=== PATIENT | female | born 1960 | race Caucasian/White ===

== ENCOUNTER → 2018-08-10 | Outpatient (CLI) | payer BC ==
[~2018-08-10] MED LIST: ATOR20TA58 PO; CARV3.1210 PO; FLUO40CA9 PO; FURO20TA3 PO; LISI-338 PO
--- NOTE | 2018-08-10 17:10 | KCIC ---
Bilateral digital screening mammograms: Reason for examination: Routine screening. Comparison is made to previous studies dated 11/24/2015 and 05/13/2011. Interpretation was made with the benefit of CAD. The skin and nipples show no abnormalities. No abnormal axillary lymph nodes are seen. The breast parenchyma shows scattered fibroglandular density. (Breast density: Category B.) There are no dominant masses, suspicious calcifications or architectural distortions. Impression: No evidence of malignancy. Recommend routine screening. BI-RADS Category 1: Negative. "Our facility is accredited by the [employer] Mammography Program." This patient's information has been entered into a reminder system for the patient to be notified with the results of her examination and a target date for the next mammogram. Electronically signed by: Kitty Arambula MD (08/10/2018 5:06 PM) [facility]
== END | disposition home or self-care (01) ==
LOC: KCIC MAMMO 14:01
PROVIDERS: ATTEND Family Medicine
DX: Z12.31 Encounter for screening mammogram for malignant neoplasm of breast (principal)
CPT/HCPCS: 77067

== ENCOUNTER → 2019-04-12 | Outpatient (CLI) | payer BC ==
[~2019-04-12] MED LIST changes: +IOHEXOL 300 MG/ML 50 ML VIAL. IT ONE; +LIDOCAINE 1% Multi-Dose 20 ML VIAL. ID ONE
--- NOTE | 2019-04-12 16:11 | KCIC ---
CT CERVICAL SPINE W/CONTRAST (with intrathecal contrast post myelogram) Indication: Paresthesias. Cervical fusion. Comparison: 08/09/2015. Technique: CT images of the cervical spine were obtained without intravenous contrast immediately after the intrathecal administration of myelographic contrast material during the preceding cervical spine myelogram. Please see the cervical myelogram report for detailed description of the intrathecal contrast administration. Sagittal and coronal reconstructions were also performed. These were viewed on soft tissue and bony settings. One or more of the following dose reduction techniques were utilized: Automated exposure control (AEC), Adjustment of mA and/or kV according to patient size, Use of iterative reconstruction technique such as ASiR, CT scan done according to ALARA and image gently/image wisely Findings: Postsurgical changes of interval ACDF at C4-C6 with interbody spacers at C4-5 and C5-6. Surgical hardware is intact. Straightening of the normal cervical lordosis. Trace anterolisthesis at C2-3 and C3-4. No acute fracture. The vertebral body heights are maintained without compression deformity. Mild multilevel degenerative disc desiccation. The visualized soft tissues of the neck are unremarkable. Degenerative changes at each level are as follows: C2-3: Mild disc bulge. No significant spinal stenosis or neural foraminal narrowing. C3-4: Central disc protrusion, which abuts and deforms the ventral cord. Mild to moderate spinal canal narrowing. Uncovertebral hypertrophy. Mild foraminal narrowing. C4-5: Uncovertebral hypertrophy. Mild foraminal narrowing. No spinal stenosis. C5-6: Uncovertebral hypertrophy. Moderate right and mild left neuroforaminal narrowing. No spinal stenosis. C6-7: Minimal disc bulge. Mild uncovertebral hypertrophy and facet arthropathy. Moderate neuroforaminal narrowing. No spinal stenosis. C7-T1: No significant spinal stenosis or neural foraminal narrowing. IMPRESSION: Cervical spondylosis, detailed level by level above. No high-grade spinal canal narrowing. ACDF at C4-C6. Intact surgical hardware. Electronically signed by: Morro Matute MD (04/12/2019 4:08 PM) [facility]
--- NOTE | 2019-04-12 16:13 | KCIC ---
MYELOGRAPHY CERVICAL DATE: 04/12/2019 9:30 AM INDICATION: Paresthesias. Cervical spondylosis. Cervical fusion. COMPARISON: 08/09/2015. CONSENT: The risks and benefits of myelography including, but not limited to, infection, bleeding, headache, and irritation or damage to nerves causing pain were discussed with the patient who gave informed verbal and written consent. Alternatives were discussed. All the questions were answered. The patient acknowledged understanding and wished to proceed with the myelogram. TECHNIQUE: The L2-3 level was localized with fluoroscopy. The skin overlying this level was then sterilely prepped, draped, and infiltrated with 1% lidocaine for local anesthesia. Under fluoroscopic guidance, a 22 gauge 3.5 inch spinal needle was inserted into the thecal sac at this level and 10 ml of Isoview 300-M was instilled. Post myelographic images demonstrate ACDF at C4-C6. Improved disc bulges at these levels. Small disc bulges at C3-4. After the fluoroscopic images were obtained, the patient was transferred to CT. The patient tolerated the procedure well. Fluoroscopic Time: 2 minutes 34 seconds Number of Images: 7 images IMPRESSION: Successful cervical myelogram. CT to follow. Electronically signed by: Morro Matute MD (04/12/2019 4:10 PM) [facility]
== END | disposition home or self-care (01) ==
LOC: KCIC 09:19
PROVIDERS: ATTEND Nurse Practitioner Gerontology
DX: M47.812 Spondylosis without myelopathy or radiculopathy, cervical region (principal); M50.21 Other cervical disc displacement, high cervical region; M12.88 Other specific arthropathies, not elsewhere classified, other specified site; M89.38 Hypertrophy of bone, other site; Z98.1 Arthrodesis status
CPT/HCPCS: 72126; 72240; Q9967

== ENCOUNTER → 2019-07-08 | Outpatient (CLI) | payer BC ==
[~2019-07-08] MED LIST changes: +ACET325T9 PO; +CYCL10TA2 PO; +IBUP-1027 PO; +IOHEXOL 180 MG/ML 10 ML VIAL. ONE; -IOHEXOL 300 MG/ML 50 ML VIAL. IT ONE; -LIDOCAINE 1% Multi-Dose 20 ML VIAL. ID ONE; +OXYC-325 PO; +methylPREDNISolone ACETATE 40 MG/ML VIAL. ONE; +methylPREDNISolone ACETATE 80 MG/ML VIAL. ONE
--- NOTE | 2019-07-08 15:54 | PAIN ---
DATE OF SERVICE: 07/08/2019 INITIAL CONSULTATION FOR PAIN CLINIC CHIEF COMPLAINT: Neck and left upper extremity pain. HISTORY OF PRESENT ILLNESS: This is a 58-year-old female, who presents with history of pain in the base of the neck, left shoulder, left upper extremity for about a year now. The patient reports over 3 years it has been getting worse, but had surgery in 2017, which helped significantly. The pain returned over about the past year, not a result of any specific injury or action that she is aware of at the base of the neck radiating to the left shoulder and arm, front of the pectoral region as well as the scapula on the left side into the bicep and into the forearms with numbness and tingling in both the hands. The patient reports it is constant, sharp, shooting with numbness and tingling in the hands and a cold sensation in the left shoulder and arm as well. The patient reports no recent injury or accident. The patient reports it awakens her from sleep at least once or twice a night, does not affect her bowel or bladder control or ability to walk, but it is worse with standing, walking, changing positions, any weightbearing with the left arm, fine motor movements are difficult with the left hand as well and reaching over her head with her right arm exacerbates the pain also, so does driving a car, holding onto a steering wheel with the left arm. The patient reports she had some trigger point injections with Dr. Carmichael in 2019, which did help temporarily. It is in the base of the neck and shoulder, also has tried Flexeril. She is taking Percocet, both of which do decrease the pain by about 30%, but did not last very long. The patient rates her disability rating from 0-10, 10 being the worst, is a 5 with family home responsibilities, 4 with recreation and social activity; 9 with occupation and sexual behavior, 2 with self-care and 0 with life support activities. The patient did have a myelogram and CT of the cervical spine showing C3-C4 central disk protrusion abutting and deforming the ventral cord with [id number] spinal canal narrowing. Previous surgery with the anterior fusion, C4 through C6. PAST MEDICAL HISTORY: Significant for arthritis, cigarette smoking. PREVIOUS SURGERY: Include a cervical anterior fusion, pacemaker placement, two knee surgeries on the left, two ankle surgeries and the cholecystectomy. CURRENT MEDICATIONS: Include Percocet, cyclobenzaprine, Tylenol, ibuprofen, Lasix, Prozac, atorvastatin, carvedilol, and lisinopril. ALLERGIES: The patient has no known drug allergies. FAMILY HISTORY: Significant for lung cancer in the patient's mother. SOCIAL HISTORY: The patient does not drink. Smokes less than a pack a day, has for many years, is single, lives locally in [place], [place]. REVIEW OF SYSTEMS: The patient's review of systems is positive for those items mentioned in history of present illness. All systems reviewed and otherwise negative. It is complete, full and well documented on the patient's chart. PHYSICAL EXAMINATION: VITAL SIGNS: The patient's blood pressure is 121/75, pulse is 93, respirations 18, temperature 98.1 degrees Fahrenheit, height is 5 feet 2 inches, weight is 122 pounds. GENERAL: The patient is awake, alert, oriented, appropriate, very pleasant demeanor. HEENT: Shows normocephalic, atraumatic. Extraocular movements are intact and symmetrical. Oral cavity: Mucous membranes moist and pink. Dentition is intact. NECK: Shows anterior throat supple without palpable lymphadenopathy noted. Swallow reflex symmetrical. CHEST: Shows normal on inspection. Breath sounds are clear bilaterally. HEART: Shows S1, S2 clear. No murmurs auscultated. ABDOMEN: Soft, nontender, nondistended. No palpable organomegaly is noted. No rebound or guarding demonstrated. BACK: Shows spine grossly in the midline, normal-appearing cervical lordotic curvature and thoracic kyphotic curvature. Cervical paraspinous muscle shows symmetrical on inspection, on palpation shows some mild tenderness inferiorly in the cervical paraspinous musculature, more on the left than the right into the superior medial and lateral trapezius, but without atrophy, hypertrophy, no trigger points, no radiation of pain. The patient shows good rotational motion of cervical spine, but significant tenderness with far lateral rotation past 45 degrees on the left, not with the right with extension, flexion is not tender as well with these maneuvers. EXTREMITIES: The patient's upper extremities show deep tendon reflexes at 2+ in the biceps and triceps tendons. Motor exam is strong with 5/5 coater smoking pipe strength, bicep and tricep flexion and symmetrical. Peripheral pulses are 2+ radial. No peripheral edema is noted. Shoulder shrug is strong and intact without loss of strength on resistance with some mild pain on the left with resistance. This is true with abduction of the shoulders. Again, strong without loss of strength, but significant pain reported in the base of the neck and the left lateral deltoid with resistance on the left only. SKIN: Shows warm and dry, good turgor. No edema. No sores, rashes, or bruising throughout. IMPRESSION: 1. This is a 58-year-old female with approximately 1-year history of increasing pain at base of the neck, left upper extremity, and left arm in a radicular fashion. 2. Myelogram cervical spine as noted. 3. History of arthritis. PLAN: Options were discussed with the patient including conservative medical managements, physical therapies and interventional techniques and she elected to proceed with interventional techniques. We discussed a cervical epidural steroid injection using description as well as anatomical models to describe the procedure. Risks were then discussed including, but not limited to bleeding, infection, possibility of epidural hematoma, subsequent neurological compromise, dural puncture, headaches, spinal cord and/or nerve damage, side effects of steroid medication and poor results regarding pain control. The patient understands and wished to proceed. The patient will return to clinic in approximately 2 weeks for followup. She was counseled on return appointment, activity level and side effects to be aware of. DIAGNOSES: Cervical radiculopathy with cervical degenerative disk disease, post-cervical laminectomy syndrome. PROCEDURE: Cervical epidural steroid injection, translaminar approach C6-C7 level using C-arm fluoroscopic guidance under sterile prep and drape using local anesthetic. MEDICATION INJECTED: A total of 120 mg Depo-Medrol plus 5 mL of preservative-free normal saline and 2 mL of contrast. CONDITION AT DISCHARGE: Stable. The patient tolerated the procedure well, had no complications. LUCITA LUNA MD DR: BRADLY/kvng JOB#: [id number] / [id number] JACLYN Cunningham MD
== END ==
LOC: PNCL 08:30
PROVIDERS: ATTEND Anesthesiology
DX: M50.123 Cervical disc disorder at C6-C7 level with radiculopathy (principal); M96.1 Postlaminectomy syndrome, not elsewhere classified; Z87.39 Personal history of other diseases of the musculoskeletal system and connective tissue; Z87.891 Personal history of nicotine dependence; Z95.0 Presence of cardiac pacemaker; Z90.49 Acquired absence of other specified parts of digestive tract; Z98.890 Other specified postprocedural states
CPT/HCPCS: 62321; J1030; J1040; Q9965

== ENCOUNTER → 2019-07-21 | Outpatient (CLI) | payer BC ==
--- NOTE | 2019-07-21 13:22 | PAIN ---
DATE OF SERVICE: 07/21/2019 PROGRESS NOTE FOR PAIN CLINIC DIAGNOSES: Cervical radiculopathy with cervical degenerative disk disease and cervical post-laminectomy syndrome. HISTORY OF PRESENT ILLNESS: The patient is a 59-year-old female who returns for followup status post cervical epidural steroid injection x 1 on 07/08/2019. The patient reports she did fairly well, but only minimal decrease in pain for about the first week. The patient reports the pain is returning now in the base of neck and shoulders, right upper extremity and left upper extremity with tingling and numbness in both the hands, slightly worse on the left side. The patient reports it is aching, dull, tight, stabbing, tingling with radiating pain, rated it as an 8 on a scale of 10 at its worst, 6 on average over the past week and 3 at its least and is a 6 today. The patient reports no new motor or sensory deficits, better with sitting or resting, lying down, does not awaken her from sleep at night. The patient reports no new motor or sensory deficits, no new changes. PHYSICAL EXAMINATION: VITAL SIGNS: The patient's blood pressure 131/91, pulse 105, respirations 18, temperature is 98.2 degrees Fahrenheit, height is 5 feet 2 inches, weight is 120 pounds. GENERAL: The patient is awake, alert, oriented, appropriate, very pleasant demeanor. HEENT: Shows normocephalic, atraumatic. Extraocular movements are intact and symmetrical. Oral cavity shows mucous membranes moist and pink. Dentition is intact. NECK: Shows anterior throat supple without palpable lymphadenopathy noted. Swallow reflex symmetrical. CHEST: Shows normal on inspection. Breath sounds are clear bilaterally. HEART: Shows S1, S2 clear. No murmurs auscultated. ABDOMEN: Soft, nontender, nondistended. No palpable organomegaly is noted. No rebound or guarding demonstrated. BACK: Shows spine grossly in the midline. Cervical lordotic curvature is slightly flattened. Paraspinous muscle shows symmetrical on inspection, on palpation shows some moderate tenderness diffusely in the middle and lower aspect of the cervical paraspinous musculature as well as into the superior medial trapezius and into the lateral trapezius on the left greater than right. The patient has good rotational motion of cervical spine, both laterally as well as extension and flexion without significant increase in pain. EXTREMITIES: The patient's upper extremities show deep tendon reflexes 2+ in the biceps and triceps tendons. Motor exam is strong with 5/5 cooking instructor strength, bicep and tricep flexion and intact. Peripheral pulses are 2+ radial. No peripheral edema is noted. PLAN: Options were discussed with the patient. The patient's old chart was reviewed as her current medication regimen updated. Current review of systems updated today as well. We will proceed with a second in the series of cervical epidural steroid injection today with fluoroscopic guidance. Risks were again discussed including, but not limited to bleeding, infection, possibility of epidural hematoma, subsequent neurological compromise, dural puncture headaches, spinal cord and/or nerve damage, side effects of steroid medication and poor results regarding pain control. The patient understands and wished to proceed. The patient will return to the clinic in approximately 2 weeks for followup, was counseled on return appointment, activity level and side effects to be aware of. DIAGNOSES: Cervical radiculopathy with cervical degenerative disk disease and cervical post-laminectomy syndrome. PROCEDURE: Cervical epidural steroid injection, translaminar approach C6-C7 level using C-arm fluoroscopic guidance under sterile prep and drape using local anesthetic. MEDICATION INJECTED: A total of 120 mg of Depo-Medrol plus 5 mL of preservative-free normal saline and 2 mL of contrast. CONDITION AT DISCHARGE: Stable. The patient tolerated procedure well, had no complications. LUCITA LUNA MD DR: BRADLY/kvng JOB#: [id number] / [id number]
== END ==
LOC: PNCL 08:42
PROVIDERS: ATTEND Anesthesiology
DX: M50.123 Cervical disc disorder at C6-C7 level with radiculopathy (principal); M96.1 Postlaminectomy syndrome, not elsewhere classified
CPT/HCPCS: 62321; J1030; J1040; Q9965

== ENCOUNTER → 2019-09-10 | Outpatient (CLI) | payer BC ==
[~2019-09-10] MED LIST changes: -IOHEXOL 180 MG/ML 10 ML VIAL. ONE; -methylPREDNISolone ACETATE 40 MG/ML VIAL. ONE; -methylPREDNISolone ACETATE 80 MG/ML VIAL. ONE
--- NOTE | 2019-09-10 09:03 | RAD ---
CT HEAD WO CONTRAST History: Numbness and weakness Comparison: None. Technique: Noncontrast CT imaging was performed of the head. Exposure: One or more of the following individualized dose reduction techniques were utilized for this examination: 1. Automated exposure control 2. Adjustment of the mA and/or kV according to patient size 3. Use of iterative reconstruction technique. Findings: No acute extra-axial or parenchymal hemorrhage is identified. There is no significant intra-axial mass effect, midline shift, or extra-axial fluid collection. The sosa-white differentiation of the major vascular territories is preserved. There are a couple of foci of relative lower density at the periphery of the right frontal parietal lobes otherwise difficult to assess if true parenchymal change or degree of volume averaging with sulcal spaces. There is focus of somewhat increased density of the left frontal cortex although does not have density characteristics of hemorrhage. The ventricles, sulci, and cisterns are within normal limits in size and configuration. Mastoid air cells are aerated. There is mild right maxillary sinus mucosal thickening, patchy very minimal ethmoid air cell, sphenoid sinus mucosal thickening. No acute calvarial abnormality is identified. Impression: 1. There is no evidence of acute intracranial hemorrhage. There are a couple of foci of relative lower density at the periphery of the right frontal parietal lobes, uncertain if artifactual such as due to volume averaging with the sulcal spaces versus true pathologic parenchymal change. There is also focus of relative increased density of the left frontal cortical surface, possibly artifactual although difficult to further characterize. MR imaging could be beneficial if patient is able to perform. Electronically signed by: Morro Fung MD (09/10/2019 9:00 AM) [id number]
[2019-09-10 10:05] VITALS: BP 113/68
[2019-09-10 10:55] VITALS: BP 128/70
[2019-09-10 11:18] LABS: CSF CLARITY CLEAR; CSF COLOR COLORLESS; CSF RBC COUNT 0 /cmm (Not Established); CSF WBC COUNT 0 /cmm (Not Established)
--- NOTE | 2019-09-10 11:23 | NUR ---
Discharge Note: STEVEN HARRISON Discharge instructions and discharge home medications reviewed with Spouse and a copy given. All questions have been answered and understanding verbalized. The following instructions and handouts were given: Post Lumbar Puncture care. Discontinued lines and drains: No IV for this visit. Patient discharged to home with , patient walked out with .
[2019-09-10 11:30] LABS: CSF PROTEIN 59.6 mg/dL (15.0-45.0)
--- NOTE | 2019-09-10 19:16 | RAD ---
Fluoroscopically Guided Lumbar Puncture for CSF Sampling: Clinical History: Dizziness and bilateral leg weakness and neck pain.. Procedure: The relative benefits, risks and alternatives to the procedure were discussed and verbal written informed consent was obtained. An appropriate procedural pause was observed. The patient was placed prone and slightly oblique on the fluoroscopic table and bony landmarks were used to plan for a lumbar puncture. Appropriate antiseptic precautions were observed including use of face mask and the patient was carefully prepped and draped in a sterile fashion and with local anesthetic and sterile technique, a 22-gauge needle was advanced at the L4-L5 level. Clear CSF was seen and approximately 15 mL of clear fluid was aspirated and sent for testing. The procedure was well tolerated and the patient was sent to Recovery in good condition. Patient was later sent home in good condition for further care and management with instructions to contact physician should if developed signs or symptoms of pain, bleeding or infection. The patient was also encouraged to drink of oral fluids to decrease chances of having a spinal headache. Total patient fluoro time: 0.3 minutes. A single image was obtained for procedural documentation. Impression: Successful fluoroscopic guided lumbar puncture for spinal tap. Electronically signed by: Stefany Powell MD (09/10/2019 7:12 PM) [id number]
== END | disposition home or self-care (01) ==
LOC: CT 13:48
PROVIDERS: ATTEND Psychiatry & Neurology Neurology with Special Qualifications in Child Neurology
DX: R42 Dizziness and giddiness (principal)
CPT/HCPCS: 62270; 62328; 70450; 82787; 82945; 83916; 84157; 87071; 87075; 87102; 87252; 89051

== ENCOUNTER → 2021-02-07 | Outpatient (CLI) | payer BC, MEDICARE, OTHER ==
[2019-09-10 10:55] VITALS: BP 128/70
[~2021-02-07] MED LIST changes: -LISI-338 PO; +LISI-517 PO
--- NOTE | 2021-02-07 13:12 | KCIC ---
EXAM: Chest CT without intravenous contrast. HISTORY: Pulmonary nodule. TECHNIQUE: Computed tomographic images of the chest were obtained without contrast. Multiplanar refor matting was performed. *One or more of the following individualized dose reduction techniques were utilized for this examina tion: 1. Automated exposure control. 2. Adjustment of the mA and/or kV according to patient size. 3. Use of iterative reconstruction technique. COMPARISON: None. FINDINGS: There are faint tiny groundglass nodular opacities clustered within the lateral right upper lobe, lateral left lower lobe and throughout the right middle lobe, the appearance of which favors a n infectious or inflammatory etiology. The largest groundglass nodule measures approximately 3 mm. Th ere is no pleural effusion or pneumothorax. The heart is normal in size. There is a small pericardial effusion. The aorta is normal in caliber. There is a cardiac pacemaker with leads in expected positi on. There is no lymphadenopathy. There is a healing anterior right fifth rib fracture with associated callus formation. There is no acute finding involving the upper abdomen. There is common bile duct d ilatation likely due to reservoir effect status post cholecystectomy, partially included on the field -of-view. There is a minimal superior endplate depression at T5. IMPRESSION: 1. Tiny faint groundglass nodular opacities within the lateral bilateral upper lobes and right middle lobe, the appearance of which favors an infectious or inflammatory etiology. Follow-up can be perfor med in one year to confirm benignity. 2. Healing anterior right fifth rib fracture. 3. Small pericardial effusion. Electronically signed by: Kristy Loja MD (02/07/2021 1:10 PM) [id number]
== END ==
LOC: KCIC CT 12:24
PROVIDERS: ATTEND Family Medicine
DX: R91.1 Solitary pulmonary nodule (principal); S22.31XD Fracture of one rib, right side, subsequent encounter for fracture with routine healing; I31.3 Pericardial effusion (noninflammatory); X58.XXXD Exposure to other specified factors, subsequent encounter
CPT/HCPCS: 71250

== ENCOUNTER → 2021-07-05 | Outpatient (CLI) | payer OTHER ==
[2019-09-10 10:55] VITALS: BP 128/70
[~2021-07-05] MED LIST changes: +CYCL10TA19 PO; -CYCL10TA2 PO; -LISI-517 PO; +LISI5TAB15 PO
--- NOTE | 2021-07-05 15:21 | KCIC ---
EXAM: Sternum, 3 views. HISTORY: Pain. COMPARISON: None. FINDINGS: 3 views of the sternum are obtained. There is no fracture. There is a left-sided cardiac pa cemaker defibrillator in expected position. IMPRESSION: No acute osseous finding. Electronically signed by: Kristy Loja MD (07/05/2021 3:19 PM) [id number]
== END ==
LOC: KCIC 13:43
PROVIDERS: ATTEND Physical Medicine & Rehabilitation
DX: R07.9 Chest pain, unspecified (principal); Z95.0 Presence of cardiac pacemaker
CPT/HCPCS: 71120